=== PATIENT | male | born 1960 | race Caucasian/White ===

== ENCOUNTER 2024-11-16 10:49 | Emergency (ER) | payer OTHER ==
[~2024-11-16] VITALS: Ht 172.7 cm; Wt 81.8 kg
[2024-11-16 15:45] VITALS: BP 154/80; PULSE 70; RESP 16; TEMP 98.5; O2SAT 98
[2024-11-16 16:00] LABS: BASOPHILS % (AUTO) 0.5 % (0-1); EOSINOPHILS # (AUTO) 0.1 X10'3 (0-0.9); EOSINOPHILS % (AUTO) 1.5 % (0-6); HEMATOCRIT 46.2 % (42.0-52.0); HEMOGLOBIN 15.6 g/dl (14.0-17.9); LYMPHOCYTES % (AUTO) 46.5 % (21-51); MEAN CORPUSCULAR HEMOGLOBIN 31.2 PG (27.0-31.0); MEAN CORPUSCULAR HGB CONC 33.8 g/dL (33.0-36.5); MEAN CORPUSCULAR VOLUME 92.4 FL (78-98); MONOCYTES # (AUTO) 0.5 X10'3 (0-0.9); MONOCYTES % (AUTO) 11.2 % (2-12); NEUTROPHILS # (AUTO) 1.8 X10'3 (1.8-7.7); NEUTROPHILS % (AUTO) 40.3 % (42-75); PLATELET COUNT 318 X10'3 (140-440); RED CELL DISTRIBUTION WIDTH 14.4 % (11.5-14.5); WHITE BLOOD COUNT 4.4 X10'3 (4.5-11.0)
[2024-11-16 16:21] LABS: TOTAL CARBON DIOXIDE 28.1 MMOL/L (24-32)
[2024-11-16 16:22] LABS: POTASSIUM 3.7 MMOL/L (3.5-5.1)
[2024-11-16 16:25] LABS: SODIUM 138 MMOL/L (135-145)
[2024-11-16 16:29] LABS: BILIRUBIN,URINE NEGATIVE (Neg); CLARITY,URINE CLEAR (Clear); COLOR,URINE YELLOW (Yellow); GLUCOSE, URINE NEGATIVE (Neg); KETONES,URINE NEGATIVE (Neg); LEUKOCYTE ESTERASE ,URINE NEGATIVE (Neg); NITRITES, URINE NEGATIVE (Neg); OCCULT BLOOD,URINE NEGATIVE (Neg); PROTEIN,URINE NEGATIVE (Neg); UROBILINOGEN,URINE 0.2 E.U/dL (0.2-1.0)
[2024-11-16 16:30] LABS: UA COLLECTION TYPE CLN CATCH MIDSTREAM
[2024-11-16 16:33] LABS: ALBUMIN 4.7 G/DL (3.4-5.0); ANION GAP 8 (8-16); BLOOD UREA NITROGEN 13 MG/DL (7-18); BUN/CREATININE RATIO 10.8 (10.0-20.0); CALCIUM 9.1 MG/DL (8.5-10.1); CHLORIDE 102 MMOL/L (99-107); GLUCOSE 85 MG/DL (70-104); eCRCL 60 ML/MIN; eGFR 61 ML/MIN
== END 2024-11-16 16:36 | disposition home or self-care (01) ==
LOC: ER 10:50
DX: M96.89 Other intraoperative and postprocedural complications and disorders of the musculoskeletal system (principal); M71.21 Synovial cyst of popliteal space [Baker], right knee
CPT/HCPCS: 36415; 80048; 81003; 83605; 84145; 85025; 87040; 93971; 99284

== ENCOUNTER 2025-01-04 08:45 | Inpatient (IN) | payer OTHER ==
[2024-12-26 15:12] LABS: BASOPHILS % (AUTO) 0.8 % (0-1); EOSINOPHILS # (AUTO) 0.1 X10'3 (0-0.9); EOSINOPHILS % (AUTO) 1.8 % (0-6); LYMPHOCYTES # (AUTO) 2.2 X10'3 (1.1-4.8); LYMPHOCYTES % (AUTO) 45.3 % (21-51); MEAN CORPUSCULAR HEMOGLOBIN 30.7 PG (27.0-31.0); MEAN CORPUSCULAR HGB CONC 33.5 g/dL (33.0-36.5); MEAN CORPUSCULAR VOLUME 91.8 FL (78-98); MONOCYTES # (AUTO) 0.6 X10'3 (0-0.9); MONOCYTES % (AUTO) 11.9 % (2-12); NEUTROPHILS % (AUTO) 40.2 % (42-75); PRE OP HEMATOCRIT 42.8 % (42.0-52.0); PRE OP HEMOGLOBIN 14.3 g/dL (14.0-17.9); PRE OP PLATELET COUNT 291 X10'3 (140-440); PRE OP WHITE BLOOD COUNT 4.9 10'3 (4.8-10.8); RED BLOOD COUNT 4.67 X10'6 (4.70-6.10); RED CELL DISTRIBUTION WIDTH 14.2 % (11.5-14.5)
[2024-12-26 15:39] LABS: ALBUMIN 4.2 G/DL (3.4-5.0); ALKALINE PHOSPHATASE 102 IU/L (46-116); BLOOD UREA NITROGEN 14 MG/DL (7-18); BUN/CREATININE RATIO 12.4 (10.0-20.0); CALCIUM 8.4 MG/DL (8.5-10.1); CHLORIDE 109 MMOL/L (99-107); CREATININE 1.13 MG/DL (0.60-1.10); PRE OP ALT 29 U/L (30-65); PRE OP ANION GAP 8 (8-16); PRE OP AST 18 U/L (10-37); PRE OP BILIRUB, TOTAL 0.6 MG/DL (0.0-1.0); PRE OP GLUCOSE 105 MG/DL (70-104); PRE OP POTASSIUM 3.9 MMOL/L (3.4-5.1); PRE OP SODIUM 143 MMOL/L (135-145); TOTAL CARBON DIOXIDE 26.2 MMOL/L (24-32); TOTAL PROTEIN 8.4 G/DL (6.4-8.2); eGFR 65 ML/MIN
[~2025-01-04] VITALS: Ht 172.7 cm; Wt 83.9 kg
[2025-01-04] VITALS (27 sets, daily range): BP systolic 83–154; BP diastolic 60–107; PULSE 69–104; RESP 12–20; TEMP 97.3–98.2; O2SAT 92–100
[2025-01-04] MEDS: ceFAZolin 2gm in dextrose, iso 50 ML IV ONE (05:30)
[2025-01-04] MEDS: tranexamic acid 1gm/0.7% sal. 100 ML IV ONE (05:30)
[~2025-01-04 08:45] MED LIST: ACET-2006 PO; AMLO5TAB16 PO; CINN500C16; GABA300C PO; HYDR-3973 PO; HYDROEYE PO; IBUP-2697 PO; LIDO76.56 TOP; MELA10TA2 PO; MULT-1085 PO; TRAM50TA2 PO
[2025-01-04] MEDS: ROPIVACAINE IU ONE (08:50)
[2025-01-04] MEDS: EPINEPHRINE IU ONE (08:50)
[2025-01-04] MEDS: [UNRECOGNIZED DRUG - OTHER] IU ONE (08:50)
[2025-01-04] MEDS: KETOROLAC TROMETH IU ONE (08:50)
[2025-01-04] MEDS: famotidine 20mg tablet PO ONE (09:08)
[2025-01-04] MEDS: VANCOMYCIN/H2O 1.5g/300mL PB 300 ML IV ONE (09:09)
[2025-01-04] MEDS: ringers solution, lacted 1,000 ML IV SCH ×2 (09:10→10:40)
[2025-01-04] MEDS ORDERED: vancomycin 1,000mg inj ONE (09:25)
[2025-01-04] MEDS ORDERED: BUPIVAcaine/dex-water/PF 7.5 mg/ml 2ml ampul ONE (09:56)
[2025-01-04] MEDS ORDERED: fentaNYL/PF 50MCG/1 ML 2ML syringe ONE (10:01)
[2025-01-04] MEDS ORDERED: MIDAZolam 1mg/ml 10ml vial ONE (10:01)
[2025-01-04] MEDS ORDERED: ROPIVAcaine 0.2% (10 MG/5 ML) BOLUS INJECTION ADDCANAL PRN (10:40)
[2025-01-04] MEDS ORDERED: morphine 4 MG/ML inj SYRINge IV PRN (10:40)
[2025-01-04] MEDS ORDERED: fentaNYL/PF 50MCG/1 ML 2ML syringe IV PRN (10:40)
[2025-01-04] MEDS ORDERED: ondansetron/PF 4mg/2ml inj IV PRN (10:40)
[2025-01-04] MEDS ORDERED: labetalol 20mg/4ml (5mg/ml) syringe IV PRN (10:40)
[2025-01-04] MEDS ORDERED: morphine 2 MG/ML inj. syringe IV PRN (10:40)
[2025-01-04] MEDS ORDERED: hydrALAZINE 20mg/ml inj. IV PRN (10:40)
[2025-01-04] MEDS ORDERED: ROPIVAcaine 0.5% (5mg/ml) 30ml vial ONE ×2 (12:04)
[2025-01-04] MEDS ORDERED: dexamethasone sod phosphate 4mg/ml inj. ONE (12:05)
[2025-01-04] MEDS ORDERED: MIDAZolam 1 MG/ML 5ML VIAL ONE (12:09)
[2025-01-04] MEDS ORDERED: naloxone 0.4 mg/ml inj IV PRN (12:50)
[2025-01-04] MEDS ORDERED: diphenhydrAMINE 25mg capsule PO PRN ×2 (12:50)
[2025-01-04] MEDS ORDERED: acetaminophen 325mg tablet PO PRN (12:50)
[2025-01-04] MEDS ORDERED: oxyCODONE IR 5mg (immed. release) tablet PO PRN ×2 (12:50)
[2025-01-04] MEDS ORDERED: HYDROmorphone inj. 0.5 MG/0.5 ML DISP.SYRIN IV PRN (12:50)
[2025-01-04] MEDS ORDERED: magnesium hydroxide 30ml (MOM) UD suspension PO PRN (12:50)
[2025-01-04] MEDS: fentaNYL/PF 50MCG/1 ML 2ML syringe IV PRN (15:27)
[2025-01-04] MEDS: ROPIVAcaine 0.2%/PF PUMP/bolus 545 ML ADDCANAL SCH (15:29)
[2025-01-04] MEDS: tranexamic acid inj. 840 MG in normal saline 100ml IV soln 91.6 ML IV ONE (16:32)
[2025-01-04] MEDS: ceFAZolin/D5W- 1GM premix 50 ML IV SCH (16:32)
[2025-01-04] MEDS: gabapentin 300mg capsule PO SCH (16:39)
[2025-01-04] MEDS: acetaminophen 325mg tablet PO SCH (16:39)
[2025-01-04] MEDS: HYDROmorphone 1 mg/ml syringe IV PRN (16:43)
[2025-01-04] MEDS ORDERED: ipratropium/albuterol 3ml nebule NEB PRN (17:30)
[2025-01-04] MEDS: potassium Cl 20mEq in NS 1,000 ML IV SCH (20:50)
[2025-01-04] MEDS ORDERED: gabapentin 300mg capsule PO SCH (21:00)
[2025-01-04] MEDS: vancomycin/NS 1 GM ADD-VANTAGE 250 ML IV SCH (21:37)
[2025-01-04] MEDS: Melatonin 3mg tablet PO SCH (21:37)
[2025-01-04] MEDS: sennosides 8.6mg tablet PO SCH (21:38)
[2025-01-05] VITALS (7 sets, daily range): BP systolic 105–117; BP diastolic 60–80; PULSE 78–107; RESP 15–16; TEMP 97.3–99; O2SAT 89–98
[2025-01-05] MEDS: HYDROcodone/acetaminophen 10/325mg tab PO PRN (01:40)
[2025-01-05] MEDS: multivitamins, therapeutics tablet PO SCH (08:00)
[2025-01-05] MEDS: amLODIPine 5mg tablet PO SCH (09:14)
[2025-01-05] MEDS: enoxaparin 40mg/0.4ml syringe SQ SCH (09:15)
[2025-01-05] MEDS: normal saline 1000ml 1,000 ML IV SCH (14:30)
[2025-01-05] MEDS: ondansetron/PF 4mg/2ml inj IV PRN (20:25)
[2025-01-06] MEDS: traMADol 50MG tablet PO PRN (00:42)
[2025-01-06 05:56] LABS: BASOPHILS % (AUTO) 0.4 % (0-1); EOSINOPHILS % (AUTO) 0.6 % (0-6); HEMATOCRIT 33.3 % (42.0-52.0); HEMOGLOBIN 11.1 g/dl (14.0-17.9); LYMPHOCYTES # (AUTO) 1.8 X10'3 (1.1-4.8); LYMPHOCYTES % (AUTO) 20.3 % (21-51); MEAN CORPUSCULAR HEMOGLOBIN 30.6 PG (27.0-31.0); MEAN CORPUSCULAR HGB CONC 33.2 g/dL (33.0-36.5); MEAN PLATELET VOLUME 8.7 FL (7.4-10.4); MONOCYTES # (AUTO) 1.5 X10'3 (0-0.9); MONOCYTES % (AUTO) 17.2 % (2-12); NEUTROPHILS # (AUTO) 5.4 X10'3 (1.8-7.7); NEUTROPHILS % (AUTO) 61.5 % (42-75); PLATELET COUNT 260 X10'3 (140-440); RED BLOOD COUNT 3.62 X10'6 (4.70-6.10); RED CELL DISTRIBUTION WIDTH 14.3 % (11.5-14.5); WHITE BLOOD COUNT 8.8 X10'3 (4.5-11.0)
[2025-01-06 06:00] VITALS: BP 104/67; PULSE 81; RESP 18; TEMP 98.3; O2SAT 96
[2025-01-06 06:07] LABS: ALANINE AMINOTRANSFERASE 27 U/L (12-78); ALBUMIN 3.4 G/DL (3.4-5.0); ALBUMIN/GLOBULIN RATIO 0.9 (1.1-1.5); ALKALINE PHOSPHATASE 65 IU/L (46-116); ANION GAP 6 (8-16); ASPARTATE AMINO TRANSFERASE 26 U/L (10-37); BILIRUBIN,TOTAL 0.8 MG/DL (0.1-1.0); BLOOD UREA NITROGEN 13 MG/DL (7-18); BUN/CREATININE RATIO 12.5 (10.0-20.0); CALCIUM 8.3 MG/DL (8.5-10.1); CHLORIDE 106 MMOL/L (99-107); CREATININE 1.04 MG/DL (0.60-1.10); GLUCOSE 100 MG/DL (70-104); POTASSIUM 4.2 MMOL/L (3.5-5.1); SODIUM 140 MMOL/L (135-145); TOTAL CARBON DIOXIDE 27.7 MMOL/L (24-32); TOTAL PROTEIN 7.3 G/DL (6.4-8.2); eCRCL 69 ML/MIN; eGFR 72 ML/MIN
[2025-01-06 07:04] LABS: PLATELET ESTIMATE NORMAL; TOTAL CELLS COUNTED 100
[2025-01-06 10:00] VITALS: BP 111/73; PULSE 95; RESP 14; TEMP 98.3; O2SAT 95
[2025-01-06 14:38] VITALS: RESP 16
== END 2025-01-06 15:30 | DRG 469 ==
LOC: PAS IN 08:45 → ORTHO 4S 16:07
PROVIDERS: ADMIT Orthopaedic Surgery; ATTEND Orthopaedic Surgery
PROC: 0SRC0JA Replacement of Right Knee Joint with Synthetic Substitute, Uncemented, Open Approach (ICD-10-PCS; principal; 2025-01-04 09:56)
DX: M17.11 Unilateral primary osteoarthritis, right knee (principal); J96.90 Respiratory failure, unspecified, unspecified whether with hypoxia or hypercapnia; G89.29 Other chronic pain; M54.9 Dorsalgia, unspecified; G47.33 Obstructive sleep apnea (adult) (pediatric); I12.9 Hypertensive chronic kidney disease with stage 1 through stage 4 chronic kidney disease, or unspecified chronic kidney disease; N18.9 Chronic kidney disease, unspecified; Z80.1 Family history of malignant neoplasm of trachea, bronchus and lung
CPT/HCPCS: Z7506; Z7508; 36415; 73560; 80053; 82948; 85007; 85025; 87081; 93005; 94760; 97110; 97116; 97161; 97530; A4215; A4615; A6253; A6258; A6446; A6449; A6454; A7000; C1776; C9250; G0378; J0171; J0690; J1100; J1171; J1650; J1885; J2250; J2274; J2405; J2795; J3010; J3370; J3372; J3480; J3490; J7030; J7120